=== PATIENT | female | born 1980 | race Caucasian/White ===

== ENCOUNTER 2017-06-10 16:38 | Emergency (ER) | payer OTHER ==
[~2017-06-10] VITALS: Ht 154.9 cm; Wt 72.6 kg
[~2017-06-10 16:38] MED LIST: ALBUTEROL2.5 MG/31 INH; AMOXICILLIN 50500 MG PO; AZITHROMYCIN 2250 MG PO; CEPHALEXIN 500500 M3 PO; HYDROCODON-ACE1 EACH PO; HYDROCODONE-AP1 EAC6 PO; IBUPROFEN 800800 M1 PO; IBUPROFEN 800800 MG PO; MEDROLDOSEPACK PO; NOHOMEMEDICATIONS; NORCO 5-325 TA1 EACH PO; PENICILLIN VK500 M1 PO; PHENERGAN 25 MG25 M1 PO; POTASSIUM20 PO; PREDNISONE 20 M20 M1 PO; PROAIR HFA8.5 GM IH; PROMETHAZINE12.5 M1 PO; SSD CREAM 1% 5050 GM TOP; TOBREX5 ML OP; VENTOLIN HFA 1818 GM INH; ZPAK PO
[2017-06-10 17:22] LABS: INFLUENZA A ANTIGEN None Detected (None Detect); INFLUENZA B ANTIGEN None Detected (None Detect)
[2017-06-10] MEDS ORDERED: BENZONATATE200 MG PO (17:36)
[2017-06-10] MEDS ORDERED: MEDROLDOSEPACK PO (17:36)
[2017-06-10] MEDS ORDERED: ZPAK PO (17:36)
[2017-06-10] MEDS ORDERED: VENTOLIN HFA INH8 GM INH (17:39)
[2017-06-10 17:50] VITALS: BP 138/81
[2017-06-10] MEDS ORDERED: PREDNISONE 10 M10 M1 PO (17:58)
== END 2017-06-10 17:50 | disposition home or self-care (01) ==
LOC: M.ERS 16:38
PROVIDERS: Nurse Practitioner
DX: J40 Bronchitis, not specified as acute or chronic (principal); F17.210 Nicotine dependence, cigarettes, uncomplicated; F10.99 Alcohol use, unspecified with unspecified alcohol-induced disorder